=== PATIENT | male | born 1940 | race Caucasian/White ===

== ENCOUNTER 2016-03-28 18:48 | Inpatient (IN) | payer MEDICARE, BC ==
[~2016-03-28] VITALS: Ht 188 cm; Wt 98.8 kg
[~2016-03-28 18:48] MED LIST: BUPIVACA/EPI 0.25% PF 30ML NERVEBLOCK ONE; FENTANYL 100 MCG/2 ML AMP IV ONE; GLYCOPYRROLATE 0.2 MG/ML VIAL IV ONE; NEOSTIGMINE 10 MG/10 ML VIAL IV ONE; ONDANSETRON 4 MG VIAL IV PUSH ONE; PROPOFOL 20 ML VIAL IV ONE; ROCURONIUM 50 MG VIAL IV ONE
[2016-03-28] MEDS ORDERED: ALU/MAG/SIM 30 ML UDC PO PRN (19:30)
[2016-03-28] MEDS ORDERED: ONDANSETRON 4 MG VIAL IV PRN (19:30)
[2016-03-28] MEDS ORDERED: MAG HYDROX 30 ML UDC PO PRN (19:30)
[2016-03-28] MEDS ORDERED: BISACODYL EC 5 MG TAB PO PRN (19:30)
[2016-03-28] MEDS ORDERED: SALINE FLUSH 10 ML FLUSH PRN (19:30)
[2016-03-28] MEDS ORDERED: PROMETHAZINE 25 MG/ML VIAL IV PRN (19:30)
[2016-03-28] MEDS ORDERED: BISACODYL 10 MG SUPP RECTAL PRN (19:30)
[2016-03-28] MEDS: FAMOTIDINE 20 MG INJ IV SCH (20:00)
[2016-03-28] MEDS: SALINE FLUSH 10 ML FLUSH SCH (20:00)
[2016-03-28 22:00] VITALS: BP_SYST 133; BP_SYST 154; RESP 18; TEMP 98.5; Ht 188 cm; Wt 98.8 kg
[2016-03-28] MEDS ORDERED: DILAUDID 1 MG/ML AMP IV PRN (23:15)
[2016-03-28 23:17] VITALS: BP_SYST 124; RESP 16; RESP 20; TEMP 98
[2016-03-29] VITALS (17 sets, daily range): BP systolic 119–149; RESP 16–28; TEMP 97.3–99.2
[2016-03-29] MEDS: PIPERACIL/TAZO 3.375GM/50ML 50 ML IV SCH ×5 (00:14→23:30)
[2016-03-29] MEDS: SODIUM CHLORIDE 0.9% 1,000 ML IV SCH ×3 (00:14→20:43)
[2016-03-29] MEDS: SODIUM CHLORIDE 0.9% FLUSH BAG 500 ML IV SCH (05:38)
[2016-03-29] MEDS: FAMOTIDINE 20 MG INJ IV SCH ×2 (08:18→20:42)
[2016-03-29] MEDS: ACETAMINOPHEN 325 MG TAB PO PRN (08:19)
[2016-03-29] MEDS: SALINE FLUSH 10 ML FLUSH SCH ×2 (08:20→20:42)
[2016-03-29] MEDS: ENOXAPARIN 40 MG/0.4 ML SYR SUBQ SCH (09:00)
[2016-03-29] MEDS ORDERED: NITROGLYCERIN SL 0.4 MG TAB SL SCH (09:15)
[2016-03-29] MEDS ORDERED: MAGNEVIST 20ML IV ONE (14:51)
[2016-03-29] MEDS ORDERED: LACT RINGERS 1,000 ML IV SCH (18:25)
[2016-03-29] MEDS ORDERED: LIDOCAINE 1% BUFFERED 1 ML SYR INTRADERM PRN (18:25)
[2016-03-29] MEDS ORDERED: MIDAZOLAM 2 MG/2 ML INJ IV ONE (18:25)
[2016-03-29] MEDS ORDERED: MORPHINE 2 MG/ML SYR IV PRN (19:05)
[2016-03-29] MEDS ORDERED: MEPERIDINE 25 MG/ML IV PRN (19:05)
[2016-03-29] MEDS ORDERED: OXYCODONE 5 MG TAB PO PRN (19:05)
[2016-03-29] MEDS ORDERED: MORPHINE 4 MG/ML SYR IV PRN (19:05)
[2016-03-29] MEDS ORDERED: ONDANSETRON 4 MG VIAL IV PRN (19:05)
[2016-03-29] MEDS ORDERED: DILAUDID 1 MG/ML AMP IV PRN (19:05)
[2016-03-29] MEDS: METOPROLOL TART 25 MG TAB PO SCH (20:42)
[2016-03-30] MEDS: METOPROLOL TART 25 MG TAB PO SCH (01:45)
[2016-03-30 02:47] VITALS: BP_SYST 149; RESP 18; TEMP 100
[2016-03-30] MEDS: ACETAMINOPHEN 325 MG TAB PO PRN (02:58)
[2016-03-30] MEDS ORDERED: METOPROLOL TART 25 MG TAB PO ONE (04:15)
[2016-03-30] MEDS ORDERED: MISSING DOSE XX ONE (05:00)
[2016-03-30] MEDS: SODIUM CHLORIDE 0.9% 1,000 ML IV SCH (05:10)
[2016-03-30] MEDS: PIPERACIL/TAZO 3.375GM/50ML 50 ML IV SCH ×2 (05:10→13:20)
[2016-03-30] MEDS: SODIUM CHLORIDE 0.9% FLUSH BAG 500 ML IV SCH (05:12)
[2016-03-30 06:59] VITALS: BP_SYST 106; RESP 16; TEMP 98.1
[2016-03-30] MEDS: FAMOTIDINE 20 MG INJ IV SCH (08:44)
[2016-03-30] MEDS: ENOXAPARIN 40 MG/0.4 ML SYR SUBQ SCH (08:45)
[2016-03-30] MEDS: SALINE FLUSH 10 ML FLUSH SCH (08:45)
[2016-03-30] MEDS ORDERED: LISINOPRIL 20 MG TAB PO SCH (09:00)
[2016-03-30 11:20] VITALS: BP_SYST 125; RESP 16; TEMP 98.1
[2016-03-30 14:02] VITALS: BP_SYST 125; RESP 16; TEMP 98.1
== END 2016-03-30 14:31 | disposition home or self-care (01) | DRG 419 ==
LOC: ENPENDDIS 21:50 → 5THW 21:50
PROVIDERS: ADMIT Internal Medicine; ATTEND Internal Medicine
PROC: 0FT44ZZ Resection of Gallbladder, Percutaneous Endoscopic Approach (ICD-10-PCS; principal; 2016-03-29 18:26)
DX: K81.0 Acute cholecystitis (principal); E11.9 Type 2 diabetes mellitus without complications; I10 Essential (primary) hypertension; Z79.84 Long term (current) use of oral hypoglycemic drugs; I25.10 Atherosclerotic heart disease of native coronary artery without angina pectoris; Z95.5 Presence of coronary angioplasty implant and graft
CPT/HCPCS: 74183; 76376; 80048; 80053; 80076; 82947; 85025; 88304; 94799; 99222; 99232; 99238